=== PATIENT | female | born 1955 | race Caucasian/White ===

== ENCOUNTER 2023-09-20 18:32 | Inpatient (IN) | payer BC, MEDICAID ==
[~2023-09-20] VITALS: Ht 160 cm; Wt 56.3 kg
[2023-09-20 19:40] LABS: Urine Bacteria FEW /hpf (None Seen); Urine Blood Negative /uL (Negative); Urine Clarity Turbid (Clear); Urine Color Colorless (Yellow); Urine Mucus FEW (None Seen); Urine Protein, UAD Negative (Negative); Urine Specific Gravity 1.019 (1.001-1.035); Urine Urobilinogen Normal (Negative); Urine WBC 136 /hpf (0 - 5)
[2023-09-20 19:40] LABS: Basophils # (auto) 0 10 ^3/uL (0-0.2); Basophils % (auto) 0.4 % (0.0-2.0); Eosinophils # (auto) 0 10 ^3/uL (0-0.8); Hemoglobin 12.5 g/dL (12.2-16.2); Lymphocytes # (auto) 1.6 10 ^3/uL (0.4-5.4); Lymphocytes % (auto) 27.5 % (10.0-50.0); Mean Corpuscular Hemoglobin 31.3 pg (28.0-32.0); Mean Corpuscular Hgb Conc. 33.7 g/dL (32.0-36.0); Mean Corpuscular Volume 92.8 fL (80.0-100.0); Monocytes # (auto) 0.5 10 ^3/uL (0-1.3); Monocytes % (auto) 8.2 % (0.0-12.0); Neutrophils # (auto) 3.7 10 ^3/uL (1.6-8.6); Neutrophils % (auto) 63.9 % (37.0-80.0); Nucleated Red Blood Cells % 0.1 %; Platelet Count (auto) 278 10^3/uL (140-450); Red Blood Cells 3.98 10^6/uL (4.0-5.20); White Blood Cell 5.8 10^3/uL (4.4-10.8)
[2023-09-20 19:54] LABS: Chloride 109 mmol/L (98-107); Sodium 141 mmol/L (136-145)
[2023-09-20 19:55] LABS: Anion Gap 6 (5-15); Calcium 9.7 mg/dL (8.7-10.4); Carbon Dioxide 26 mmol/L (20-30)
[2023-09-20 20:00] LABS: BUN/Creatinine Ratio 23.1 (10.0-20.0); Blood Urea Nitrogen 15 mg/dL (9-23); Glucose 94 mg/dL (74-106)
[2023-09-20 22:50] VITALS: PULSE 81; RESP 16; O2SAT 99
[2023-09-20] MEDS: SODIUM CHLORIDE 0.9% 500 ML IVB ONE (22:56)
[2023-09-20] MEDS: cefTRIAXone 1GM/50ML D5W 50 ML IV ONE (22:56)
[2023-09-20] MEDS ORDERED: MORPHINE SULFATE INJ 2 MG/ml SYRG IV PRN ×2 (23:15)
[2023-09-21] MEDS: SODIUM CHLORIDE 0.9% 1,000 ML IV SCH (03:34)
[2023-09-21] MEDS: HYDROcodone-ACET 5/325MG TAB PO PRN (04:37)
[2023-09-21 05:26] LABS: Basophils # (auto) 0 10 ^3/uL (0-0.2); Basophils % (auto) 0.3 % (0.0-2.0); Eosinophils # (auto) 0 10 ^3/uL (0-0.8); Hematocrit 38.6 % (36.0-46.0); Hemoglobin 12.7 g/dL (12.2-16.2); Lymphocytes # (auto) 1.8 10 ^3/uL (0.4-5.4); Mean Corpuscular Hemoglobin 30.9 pg (28.0-32.0); Mean Corpuscular Hgb Conc. 32.9 g/dL (32.0-36.0); Mean Corpuscular Volume 93.9 fL (80.0-100.0); Monocytes # (auto) 0.5 10 ^3/uL (0-1.3); Monocytes % (auto) 8.8 % (0.0-12.0); Neutrophils # (auto) 3.1 10 ^3/uL (1.6-8.6); Neutrophils % (auto) 57.9 % (37.0-80.0); Nucleated Red Blood Cells % 0.1 %; Platelet Count (auto) 256 10^3/uL (140-450); Red Blood Cells 4.11 10^6/uL (4.0-5.20); Red Cell Distribution Width 13.5 % (11.8-14.3); White Blood Cell 5.3 10^3/uL (4.4-10.8)
[2023-09-21 05:42] LABS: Alanine Aminotransferase 20 U/L (7-40); Alkaline Phosphatase 96 U/L (46-116); Anion Gap 8 (5-15); Aspartate Aminotransferase 11 U/L (13-40); BUN/Creatinine Ratio 31.3 (10.0-20.0); Blood Urea Nitrogen 15 mg/dL (9-23); Calcium 9.4 mg/dL (8.7-10.4); Carbon Dioxide 22 mmol/L (20-30); Chloride 108 mmol/L (98-107); Glucose 98 mg/dL (74-106); Potassium 3.7 mmol/L (3.5-5.1); Sodium 138 mmol/L (136-145)
[2023-09-21 05:43] LABS: Albumin 4.3 g/dL (3.2-4.8); Bilirubin, Total 0.4 mg/dL (0.2-1.0)
[2023-09-21 07:50] VITALS: O2SAT 100
[2023-09-21] MEDS: ONDANSETRON HCL 4 MG/2 ML VIAL IV PRN (13:04)
[2023-09-21] MEDS ORDERED: CLOP75TA70 PO (17:45)
[2023-09-21] MEDS ORDERED: ALBU108A5 INH (17:45)
[2023-09-21] MEDS ORDERED: FAMO-12 PO (17:45)
[2023-09-21] MEDS ORDERED: ARIP2TAB48 PO (17:45)
[2023-09-21] MEDS ORDERED: SIMV40TA18 PO (17:45)
[2023-09-21] MEDS ORDERED: FLUT44AE8 INH (17:45)
[2023-09-21] MEDS ORDERED: ALBUTEROL SULF HFA 90MCG INH 200DOSE IN PRN (17:45)
[2023-09-21] MEDS ORDERED: LEVO50TA7 PO (17:45)
[2023-09-21] MEDS ORDERED: LISI-275 PO (17:45)
[2023-09-21] MEDS: ACETAMINOPHEN 325 MG TAB PO PRN (17:58)
[2023-09-21 19:35] VITALS: BP 148/84; PULSE 55; RESP 16; TEMP 99.2; O2SAT 99
[2023-09-21 20:00] VITALS: O2SAT 99
[2023-09-21 20:56] VITALS: BP 103/73; PULSE 52; RESP 21; TEMP 97.9; O2SAT 95
[2023-09-21] MEDS: FLUTICASONE PROPIONATE IN SCH (22:00)
[2023-09-21] MEDS: FAMOTIDINE 20 MG TAB PO SCH (22:35)
[2023-09-21] MEDS: cefTRIAXone 1GM/50ML D5W 50 ML IV SCH (22:49)
[2023-09-22] VITALS (10 sets, daily range): BP systolic 120–159; BP diastolic 69–94; PULSE 46–68; RESP 16–21; TEMP 97.5–98.2; O2SAT 95–100
[2023-09-22] MEDS: DOCUSATE SOD 100 MG CAP PO PRN (03:01)
[2023-09-22] MEDS: LEVOTHYROXINE SODIUM 50 MCG TAB PO SCH (05:57)
[2023-09-22] MEDS: ALBUTEROL SULF 2.5 MG/0.5ML(0.5%) NEB SOLN NEB PRN (08:54)
[2023-09-22] MEDS: CLOPIDOGREL BISULFATE 75 MG TAB PO SCH (09:55)
[2023-09-22] MEDS: LISINOPRIL 5 MG TAB PO SCH (09:56)
[2023-09-22] MEDS: ATORVASTATIN 20 MG TAB PO SCH (09:56)
[2023-09-22] MEDS: Aripiprazole 2 MG TAB PO SCH (10:00)
[2023-09-22] MEDS: GABAPENTIN 300 MG CAP PO SCH (15:23)
[2023-09-22] MEDS: levETIRAcetam 500 MG TAB PO SCH (22:21)
[2023-09-23] VITALS (15 sets, daily range): BP systolic 114–138; BP diastolic 61–79; PULSE 38–68; RESP 14–21; TEMP 97.6–98.5; O2SAT 96–100
[2023-09-23] MEDS ORDERED: DICY-89 PO (09:57)
[2023-09-23] MEDS ORDERED: LEVO500T91 PO (15:02)
[2023-09-23] MEDS: clonazePAM 0.5 MG TAB PO PRN (15:31)
[2023-09-23] MEDS: DICYCLOMINE HCL 10 MG CAP PO SCH (15:31)
[2023-09-24] VITALS (11 sets, daily range): BP systolic 100–133; BP diastolic 54–74; PULSE 53–73; RESP 17–21; TEMP 97.8–98.9; O2SAT 95–99
[2023-09-24 14:46] LABS: Amphetamine Screen, Urine Neg (NEGATIVE); Barbiturate Scree,Urine Neg (NEGATIVE); Benzodiazephine Screen, Urine Neg (NEGATIVE)
[2023-09-24 14:47] LABS: Cannabinoid Screen, Urine Neg (NEGATIVE); Cocaine Screen, Urine Neg (NEGATIVE); Opiate Scree,Urine Neg (NEGATIVE); Phencyclidine Screen, Urine Neg (NEGATIVE)
[2023-09-24 15:21] LABS: Chloride 107 mmol/L (98-107); Potassium 3.9 mmol/L (3.5-5.1); Sodium 138 mmol/L (136-145)
[2023-09-24 15:22] LABS: Anion Gap 3 (5-15); Carbon Dioxide 28 mmol/L (20-30)
[2023-09-24 15:23] LABS: Calcium 9.4 mg/dL (8.7-10.4)
[2023-09-24 15:27] LABS: Glucose 84 mg/dL (74-106)
[2023-09-24 15:28] LABS: BUN/Creatinine Ratio 16.7 (10.0-20.0); Blood Urea Nitrogen 9 mg/dL (9-23)
[2023-09-25] VITALS (16 sets, daily range): BP systolic 108–142; BP diastolic 64–94; PULSE 51–78; RESP 16–20; TEMP 97.6–98.6; O2SAT 95–100
[2023-09-25] MEDS: IPRATROPIUM BROM 0.5 MG/2.5ML INH SOL NEB SCH (06:31)
[2023-09-26] VITALS (14 sets, daily range): BP systolic 120–149; BP diastolic 62–88; PULSE 48–77; RESP 16–20; TEMP 97.5–98.1; O2SAT 93–100
[2023-09-27] VITALS (55 sets, daily range): BP systolic 79–168; BP diastolic 57–91; PULSE 50–88; RESP 12–29; TEMP 97.3–98.4; O2SAT 94–100
[2023-09-27] MEDS: fentaNYL CITRATE 100 MCG/2 ML VL ONE (07:47)
[2023-09-27] MEDS: ANGIOMAX 250 MG VIAL IV ONE (07:47)
[2023-09-27] MEDS: SODIUM CHL 0.9% 0 ML ONE (07:48)
[2023-09-27] MEDS: ceFAZolin 1GM/50ML 50 ML IV ONE (07:48)
[2023-09-27] MEDS: MIDAZOLAM HCL 2MG/2ML 2ml VIAL (1mg/ml) ONE (07:48)
[2023-09-27] MEDS: LIDOCAINE 2%HCL (LOCAL ANESTH.) INJ 20ML MDV ONE (07:50)
[2023-09-27] MEDS: ONDANSETRON HCL 4 MG/2 ML VIAL ONE (08:32)
[2023-09-27] MEDS: HEPARIN SODIUM (PORCINE) 5000 UNITS/ML 1ML VIAL ONE (08:32)
[2023-09-27 11:44] LABS: INR 1.41 (0.9-1.15); Prothrombin Time 14.6 sec (9.3-11.8)
[2023-09-27 11:52] LABS: Partial Thromboplastin Time > 139.0 SEC (24.5-34.5)
[2023-09-27] MEDS: SODIUM CHLORIDE 0.9% 500 ML IV ONE ×2 (12:43→13:00)
[2023-09-27 15:14] LABS: Basophils # (auto) 0 10 ^3/uL (0-0.2); Basophils % (auto) 0.2 % (0.0-2.0); Eosinophils # (auto) 0 10 ^3/uL (0-0.8); Hematocrit 40.2 % (36.0-46.0); Hemoglobin 12.9 g/dL (12.2-16.2); Lymphocytes # (auto) 0.9 10 ^3/uL (0.4-5.4); Lymphocytes % (auto) 4.8 % (10.0-50.0); Mean Corpuscular Hemoglobin 30.6 pg (28.0-32.0); Mean Corpuscular Hgb Conc. 32.1 g/dL (32.0-36.0); Mean Corpuscular Volume 95.2 fL (80.0-100.0); Monocytes # (auto) 0.7 10 ^3/uL (0-1.3); Monocytes % (auto) 3.7 % (0.0-12.0); Neutrophils # (auto) 16.9 10 ^3/uL (1.6-8.6); Neutrophils % (auto) 91.3 % (37.0-80.0); Nucleated Red Blood Cells % 0.1 %; Platelet Count (auto) 275 10^3/uL (140-450); Red Blood Cells 4.23 10^6/uL (4.0-5.20); Red Cell Distribution Width 13.7 % (11.8-14.3); White Blood Cell 18.5 10^3/uL (4.4-10.8)
[2023-09-27] MEDS: COLCHICINE 0.6 MG CAP PO SCH (21:10)
[2023-09-28] VITALS (30 sets, daily range): BP systolic 92–136; BP diastolic 63–85; PULSE 67–95; RESP 17–30; TEMP 98–99.4; O2SAT 74–100
[2023-09-28] MEDS: SODIUM CHLORIDE 0.9% 1,000 ML IV SCH ×2 (04:10→10:00)
[2023-09-28 04:15] LABS: Basophils # (auto) 0 10 ^3/uL (0-0.2); Basophils % (auto) 0.1 % (0.0-2.0); Eosinophils # (auto) 0 10 ^3/uL (0-0.8); Hematocrit 38.6 % (36.0-46.0); Hemoglobin 12.5 g/dL (12.2-16.2); Lymphocytes # (auto) 1.2 10 ^3/uL (0.4-5.4); Lymphocytes % (auto) 10.1 % (10.0-50.0); Mean Corpuscular Hemoglobin 30.7 pg (28.0-32.0); Mean Corpuscular Hgb Conc. 32.3 g/dL (32.0-36.0); Mean Corpuscular Volume 94.9 fL (80.0-100.0); Monocytes # (auto) 1.1 10 ^3/uL (0-1.3); Monocytes % (auto) 9.1 % (0.0-12.0); Neutrophils # (auto) 9.6 10 ^3/uL (1.6-8.6); Neutrophils % (auto) 80.7 % (37.0-80.0); Nucleated Red Blood Cells % 0.1 %; Platelet Count (auto) 235 10^3/uL (140-450); Red Blood Cells 4.07 10^6/uL (4.0-5.20); White Blood Cell 11.9 10^3/uL (4.4-10.8)
[2023-09-28 04:43] LABS: Alanine Aminotransferase 177 U/L (7-40); Albumin 3.8 g/dL (3.2-4.8); Alkaline Phosphatase 150 U/L (46-116); Anion Gap 11 (5-15); Aspartate Aminotransferase 90 U/L (13-40); BUN/Creatinine Ratio 21.7 (10.0-20.0); Blood Urea Nitrogen 13 mg/dL (9-23); Calcium 9.3 mg/dL (8.7-10.4); Carbon Dioxide 19 mmol/L (20-30); Chloride 109 mmol/L (98-107); Glucose 135 mg/dL (74-106); Potassium 3.8 mmol/L (3.5-5.1); Sodium 139 mmol/L (136-145)
[2023-09-28 04:44] LABS: Bilirubin, Total 0.4 mg/dL (0.2-1.0); Total Protein 6.1 g/dL (5.7-8.2)
[2023-09-29] VITALS (29 sets, daily range): BP systolic 106–132; BP diastolic 63–84; PULSE 65–89; RESP 18–28; TEMP 98.3–99.2; O2SAT 78–100
[2023-09-30] VITALS (21 sets, daily range): BP systolic 102–129; BP diastolic 59–99; PULSE 58–85; RESP 14–29; TEMP 97.6–98.5; O2SAT 89–100
[2023-09-30 07:52] LABS: Alanine Aminotransferase 68 U/L (7-40); Albumin 3.5 g/dL (3.2-4.8); Alkaline Phosphatase 91 U/L (46-116); Anion Gap 5 (5-15); Aspartate Aminotransferase 28 U/L (13-40); BUN/Creatinine Ratio 15.4 (10.0-20.0); Blood Urea Nitrogen 6 mg/dL (9-23); Calcium 8.8 mg/dL (8.7-10.4); Carbon Dioxide 24 mmol/L (20-30); Chloride 110 mmol/L (98-107); Glucose 106 mg/dL (74-106); Potassium 3.7 mmol/L (3.5-5.1); Sodium 139 mmol/L (136-145)
[2023-09-30 07:53] LABS: Bilirubin, Total 0.4 mg/dL (0.2-1.0); Total Protein 5.7 g/dL (5.7-8.2)
[2023-09-30] MEDS ORDERED: COLC1CAP PO (14:54)
[2023-09-30] MEDS ORDERED: KEP500T PO (14:54)
[2023-09-30] MEDS ORDERED: GABA-1250 PO (14:54)
[2023-10-01] VITALS (11 sets, daily range): BP systolic 114–131; BP diastolic 69–79; PULSE 61–70; RESP 16–24; TEMP 97.7–97.9; O2SAT 90–100
[2023-10-01] MEDS: NITROGLYCERIN 0.4 MG SL TAB SL PRN (02:44)
[2023-10-02] VITALS (14 sets, daily range): BP systolic 117–139; BP diastolic 60–89; PULSE 59–78; RESP 16–21; TEMP 97.7–98.5; O2SAT 93–100
[2023-10-03] VITALS (18 sets, daily range): BP systolic 122–164; BP diastolic 57–99; PULSE 56–98; RESP 16–22; TEMP 97.8–98.2; O2SAT 92–100
[2023-10-03 09:19] LABS: Hepatitis B Core Total AB Negative (Negative)
[2023-10-03 09:47] LABS: Hepatitis A Total Antibody Negative (Negative); Hepatitis B Surface Antibody Negative (Negative); Hepatitis B Surface Antigen Negative (Negative); Hepatitis C Antibody Negative (Negative)
[2023-10-04] VITALS (13 sets, daily range): BP systolic 119–147; BP diastolic 72–86; PULSE 64–130; RESP 14–78; TEMP 97.6–99.6; O2SAT 91–98
[2023-10-05] VITALS (12 sets, daily range): BP systolic 117–157; BP diastolic 68–86; PULSE 60–93; RESP 16–21; TEMP 97.3–98.2; O2SAT 91–99
[2023-10-06 00:43] VITALS: PULSE 73; RESP 16; O2SAT 94
[2023-10-06 00:51] VITALS: PULSE 70; RESP 16; O2SAT 98
[2023-10-06 05:00] VITALS: BP 141/71; PULSE 75; RESP 18; TEMP 97.6; O2SAT 93
[2023-10-06 06:30] VITALS: O2SAT 94
== END 2023-10-06 09:49 | disposition home or self-care (01) | DRG 228 ==
LOC: EDBD 18:32 → ER 18:32 → TELE 23:07 → TELE-WESTW 09-21 20:56 → TELE-EAST 09-26 06:30 → ICU WEST 09-27 18:13 → TELE-EAST 09-30 09:42
PROVIDERS: ADMIT Internal Medicine; ATTEND Nurse Practitioner
PROC: 02HK3NZ Insertion of Intracardiac Pacemaker into Right Ventricle, Percutaneous Approach (ICD-10-PCS; principal; 2023-09-27)
DX: I49.5 Sick sinus syndrome (principal); Z00.6 Encounter for examination for normal comparison and control in clinical research program; I21.A1 Myocardial infarction type 2; N30.00 Acute cystitis without hematuria; I31.39 Other pericardial effusion (noninflammatory); J98.11 Atelectasis; I50.32 Chronic diastolic (congestive) heart failure; K21.9 Gastro-esophageal reflux disease without esophagitis; E03.9 Hypothyroidism, unspecified; J44.9 Chronic obstructive pulmonary disease, unspecified; F31.9 Bipolar disorder, unspecified; K58.9 Irritable bowel syndrome, unspecified; G40.909 Epilepsy, unspecified, not intractable, without status epilepticus; I25.10 Atherosclerotic heart disease of native coronary artery without angina pectoris; I08.1 Rheumatic disorders of both mitral and tricuspid valves; I45.9 Conduction disorder, unspecified; I77.810 Thoracic aortic ectasia; Z83.3 Family history of diabetes mellitus; Z95.5 Presence of coronary angioplasty implant and graft; Z82.0 Family history of epilepsy and other diseases of the nervous system; I25.2 Old myocardial infarction; Z79.899 Other long term (current) drug therapy; Z79.02 Long term (current) use of antithrombotics/antiplatelets; Z87.440 Personal history of urinary (tract) infections; Z90.49 Acquired absence of other specified parts of digestive tract; Z90.12 Acquired absence of left breast and nipple; Z98.82 Breast implant status; Z86.73 Personal history of transient ischemic attack (TIA), and cerebral infarction without residual deficits; Z87.891 Personal history of nicotine dependence; I11.0 Hypertensive heart disease with heart failure
CPT/HCPCS: 33207; 36415; 71045; 71250; 76705; 80048; 80053; 80307; 81001; 82140; 82728; 82962; 83605; 83880; 84443; 84484; 85025; 85379; 85610; 85730; 86038; 86704; 86706; 86708; 86803; 86850; 86870; 86900; 86901; 87040; 87081; 87340; 93005; 93306; 94640; 96361; 96365; 96375; 99152; G0378; J2250; J2405